=== PATIENT | female | born 1965 | race Caucasian/White ===

== ENCOUNTER 2016-08-16 15:04 | Emergency (ER) | payer SELFPAY ==
[~2016-08-16] VITALS: Ht 162.6 cm; Wt 116.0 kg
[~2016-08-16 15:04] MED LIST: CIPR-9 PO; LECIGRA; LOSA50TA PO; MULTTAB24
[2016-08-16 15:06] VITALS: BP 170/83; PULSE 88; RESP 20; TEMP 97.9; O2SAT 96
--- NOTE | 2016-08-16 15:10 | PD ---
Physical Exam Time Seen by Provider: 15:10 Narrative 51 y/o female here for evaluation of cough, congestion, post-nasal drip for 4 days. Vital signs reviewed. Seen at triage desk. Awaiting bed placement. Data Data Last Documented VS Vital Signs Date Time Temp Pulse Resp B/P Pulse Ox O2 Delivery O2 Flow Rate FiO2 08/16/16 15:06 97.9 88 20 170/83 96 Room Air [facility] Medical Record Reviewed: Yes Supervised Visit with NARCISO: Nick Crouch August 16, 2016 15:10
[2016-08-16] MEDS ORDERED: CIPR250T52 PO (15:41)
--- NOTE | 2016-08-16 15:42 | PD ---
HPI Chief Complaint: Cold / Flu Symptoms Time Seen by Provider: 15:38 Travel History International Travel<30 days: No Contact w/Intl Traveler<30days: No Traveled to known affect area: No History of Present Illness HPI 51-year-old female here with complaint of flulike symptoms. Patient has had 3 days of ear pressure, drainage, sinus pressure, nasal drainage with postnasal drip and nonproductive cough. No fevers or chills. Patient states that she has a history of similar symptoms and ciprofloxacin has been very beneficial in the past. PFSH Past Medical History Cancer: No Cardiovascular Problems: No High Cholesterol: Yes Diabetes: No Diminished Hearing: No Endocrine: No Genitourinary: No Hepatitis: No Hiatal Hernia: No Hypertension: Yes Immune Disorder: No Musculoskeletal: No Neurologic: No Psychiatric: No Reproductive: No Respiratory: No Thyroid Disease: No Menopausal: Yes Past Surgical History Abdominal Surgery: No AICD: No Cardiac Surgery: No Ear Surgery: No Endocrine Surgery: No Eye Surgery: No Genitourinary Surgery: No Gynecologic Surgery: Yes (HYSTERECTOMY 2002) Hysterectomy: Yes Joint Replacement: No Oral Surgery: No Pacemaker: No Thoracic Surgery: No Social History Alcohol Use: Yes Tobacco Use: Yes (1 PPD) Substance Use: Yes ([facility]) Allergies-Medications (Allergen,Severity, Reaction): Coded Allergies: Penicillin (Verified Adverse Reaction, Severe, INCREASED HEART RATE, N&V, 08/16/16) Reported Meds & Prescriptions Reported Meds & Active Scripts Active Cipro (Ciprofloxacin HCl) 250 Mg Tab 750 Mg PO BID 7 Days Losartan (Losartan Potassium) 50 Mg Tab 50 Mg PO BID Cipro (Ciprofloxacin HCl) 500 Mg Tab 500 Mg PO BID Reported Lecithin (Soybean Lecithin (Bulk)) 1 Gra Gra TID Multi For Her (Multiple Vitamins W/ Minerals) 1 Tab Tab DAILY Review of Systems General / Constitutional: No: Fever HENT: Positive: Sore Throat, Rhinorrhea, Congestion, Ear Discharge, Earache Respiratory: Positive: Cough Musculoskeletal: No: Pain Neurologic: No: Weakness Physical Exam Narrative GENERAL: Well-appearing female in no acute distress SKIN: Focused skin assessment warm/dry. HEAD: Normocephalic. EYES: No scleral icterus. No injection or drainage. ENT: TMs themselves are clear bilaterally but the external auditory canal is edematous, erythematous with minimal discharge. Tenderness to palpation of the maxillary sinuses with nasal mucosal injection, clear nasal discharge. Posterior pharynx is clear without tonsillar swelling, erythema, exudate. There is posterior nasal drip. N NECK: Supple without lymphadenopathy CARDIOVASCULAR: Regular rate and rhythm. RESPIRATORY: No accessory muscle use. Clear to auscultation. Breath sounds equal bilaterally. MUSCULOSKELETAL: Normal gait NEUROLOGICAL: Awake and alert. Normal speech. PSYCHIATRIC: Appropriate mood and affect; insight and judgment normal. Data Data Last Documented VS Vital Signs Date Time Temp Pulse Resp B/P Pulse Ox O2 Delivery O2 Flow Rate FiO2 08/16/16 15:09 08/16/16 15:06 97.9 88 20 96 Room Air MDM Medical Decision Making Medical Screen Exam Complete: Yes Emergency Medical Condition: Yes Medical Record Reviewed: Yes Differential Diagnosis 51-year-old female here with complaint of flulike symptoms. Exam shows evidence of bilateral otitis externa, and likely concurrent sinus infection. This may be bacterial versus viral versus allergic but given the appearance of her ears treat with antibiotics. Narrative Course Patient states that ciprofloxacin has been most effective for her in the past as opposed to azithromycin. She has a penicillin allergy. Diagnosis Primary Impression: Otitis externa Qualified Code: H60.503 - Acute otitis externa of both ears, unspecified type Additional Impression: Sinus infection Qualified Code: J01.00 - Acute maxillary sinusitis, recurrence not specified Referrals: Primary Care Physician as needed Additional Instructions: Antibiotics as prescribed. Follow-up with primary care provider symptoms persist and return to the ER for the warning signs discussed. Med/Other Pt SpecificInfo: Prescription(s) given Scripts Ciprofloxacin (Cipro)250 Mg [id number] Mg PO BID 7 Days Ref 0 Prov:Carey Sanchez MD 08/16/16 Disposition: 01 DISCHARGE HOME Condition: Stable Carey Sanchez MD August 16, 2016 15:42
[2016-09-06] MEDS ORDERED: LECI12002 PO (08:44)
[2016-09-06] MEDS ORDERED: IBUP800T23 PO (09:01)
[2016-09-06] MEDS ORDERED: AMLO5TAB2 PO (09:01)
[2016-09-06] MEDS ORDERED: LOSA50TA PO (09:01)
[2016-09-06] MEDS ORDERED: CIPR500T2 PO (09:05)
== END 2016-08-16 15:47 | disposition home or self-care (01) ==
LOC: NEPD 15:04
DX: H60.93 Unspecified otitis externa, bilateral (principal); J01.00 Acute maxillary sinusitis, unspecified; I10 Essential (primary) hypertension; E78.00 Pure hypercholesterolemia, unspecified; F17.210 Nicotine dependence, cigarettes, uncomplicated
CPT/HCPCS: 99283

== ENCOUNTER → 2016-09-04 | Outpatient (CLI) | payer OTHER ==
[~2016-09-04] MED LIST changes: +AMLO5TAB2 PO; +CIPR250T52 PO; +CIPR500T2 PO; +IBUP800T23 PO; +LECI12002 PO
[2016-09-04 12:14] LABS: HDL CHOLESTEROL 67.7 MG/DL (40.0-60.0); LDL CHOLESTEROL 71 MG/DL (0-99)
[2016-09-04 15:56] LABS: HEMOGLOBIN A1a 0.9 %; HEMOGLOBIN A1b 1.4 %; HEMOGLOBIN Ao 85.6 %; HEMOGLOBIN LA1C 2.1 %; HEMOGLOBIN P3 3.6 %
== END ==
LOC: CLAB 10:57
PROVIDERS: ATTEND Nurse Practitioner Family
DX: E11.9 Type 2 diabetes mellitus without complications (principal)
CPT/HCPCS: 36415; 80061; 83036